=== PATIENT | male | born 1970 | race Two or more races ===

== ENCOUNTER 2020-09-11 17:46 | Emergency (ER) | payer OTHER, MEDICAID ==
[~2020-09-11] VITALS: Ht 165.1 cm; Wt 106.6 kg
[~2020-09-11 17:46] MED LIST: CYCLOBENZAPRINE10 MG ORAL; IBUPROFEN600 MG ORAL; NORCO 5-325 TA1 EACH ORAL
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
[2020-09-11] MEDS ORDERED: BENZTROPINE MESY1 MG ORAL (18:31)
[2020-09-11] MEDS ORDERED: PROCHLORPERAZINE5 MG ORAL (18:31)
[2020-09-11] MEDS ORDERED: propanolol PO (18:31)
[2020-09-11] MEDS ORDERED: VENLAFAXINE HCL25 MG ORAL (18:31)
[2020-09-11] MEDS ORDERED: HALOPERIDOL1 MG ORAL (18:31)
[2020-09-11] MEDS ORDERED: ATIVAN1 MG ORAL (18:31)
[2020-09-11] MEDS ORDERED: KLONOPIN1 MG ORAL (18:31)
--- NOTE | 2020-09-11 18:50 | NUR ---
called [facility] at [phone], left voicemail twice. no answer.
--- NOTE | 2020-09-11 18:50 | NUR ---
ED Nurse Note: IV line was established on left AC 20 ga, blood collected sent to lab.
--- NOTE | 2020-09-11 19:42 | NUR ---
called Carlos aguilar, patients brother states that there will be someone there to accept the patient
[2020-09-11 19:54] LABS: BASOPHILS % (AUTO) 1.9 % (0.0-2.0); HEMATOCRIT 54.6 % (42.0-52.0); LYMPHOCYTES % (AUTO) 41.6 % (20.0-45.0); MEAN CORPUSCULAR VOLUME 80 FL (80-99); MONOCYTES % (AUTO) 6.4 % (1.0-10.0); NEUTROPHILS % (AUTO) 48.1 % (45.0-75.0); PLATELET COUNT 256 K/UL (150-450); RED BLOOD COUNT 6.79 M/UL (4.70-6.10); RED CELL DISTRIBUTION WIDTH 14.3 % (11.6-14.8); WHITE BLOOD COUNT 8.5 K/UL (4.8-10.8)
[2020-09-11] MEDS ORDERED: LORazepam Inj 2mg/ml 1ml IV ONE (20:00)
--- NOTE | 2020-09-11 20:00 | NUR ---
ED Nurse Note: Recieved report from JACKELYN Mast to resume care, pt sitting in chair in hallway, awake, alert and oriented x 4, pt addressing concerns of being discharged, stating he still needs meds, pt zyprexias just given by previous nurse, pt assisted back to room, will continue to closely monitor asnd prepare for discharge.
[2020-09-11] MEDS ORDERED: ZYPREXA ZYDIS5 MG ORAL (20:12)
[2020-09-11 20:18] LABS: HEMOGLOBIN 18.1 G/DL (14.2-18.0)
[2020-09-11 20:24] LABS: ANION GAP 8 mmol/L (5-15); BLOOD UREA NITROGEN 16 mg/dL (7-18); CALCIUM 9.1 MG/DL (8.5-10.1); CARBON DIOXIDE 29 MMOL/L (21-32); CHLORIDE 103 MMOL/L (98-107); CREATININE 1.2 MG/DL (0.55-1.30); POTASSIUM 3.9 MMOL/L (3.5-5.1); SODIUM 140 MMOL/L (136-145)
[2020-09-11 20:28] LABS: ALANINE AMINOTRANSFERASE 26 U/L (12-78); ALBUMIN 3.7 G/DL (3.4-5.0); ALBUMIN/GLOBULIN RATIO 1.3 (1.0-2.7); ALKALINE PHOSPHATASE 102 U/L (46-116); ASPARTATE AMINO TRANSFERASE 15 U/L (15-37); BILIRUBIN,TOTAL 0.3 MG/DL (0.2-1.0)
[2020-09-11 20:45] VITALS: BP 138/79
--- NOTE | 2020-09-11 21:00 | NUR ---
ER DISCHARGE NOTE: Patient is cleared to be discharged per ERMD, pt is aox4, on room air, with stable vital signs. pt was given dc and prescription instructions, pt was able to verbalize understanding, pt id band and iv site removed without complications. pt is able to ambulate with steady gait. pt took all belongings.pt brother present to drive pt.
[2020-09-11 21:05] VITALS: BP 138/79
--- NOTE | 2020-09-11 22:40 | Emergency Room Report ---
History of Present Illness General Chief Complaint: Behavioral Complaint Source: Patient Present Illness HPI 49-year-old male brought in by EMS for behavioral complaint. Coming from an assisted living facility. History of schizophrenia. Patient became agitated and aggressive with staff there. Upon arrival patient states that they upset him. Denies SI or HI. Denies hearing voices. States that he does not believe his medications are working. No other aggravating relieving factors. Denies any other associated symptoms Allergies: Coded Allergies: No Known Allergies (Unverified , 05/21/15) COVID-19 Screening Contact w/high risk pt: No Experienced COVID-19 symptoms?: No COVID-19 Testing performed NAIL KEGGER: No Patient History Past Medical History: psych hx Past Surgical History: none Pertinent Family History: none Social History: Denies: smoking, alcohol use, drug use Immunizations: UTD Reviewed Nursing Documentation: PMH: Agreed; PSxH: Agreed Nursing Documentation-PMH Past Medical History: No History, Except For History Of Psychiatric Problem: Yes - schizophrenia Review of Systems All Other Systems: negative except mentioned in HPI Physical Exam Vital Signs Date Time Temp Pulse Resp B/P (MAP) Pulse Ox O2 Delivery O2 Flow Rate FiO2 09/11/20 17:57 97.3 09/11/20 18:05 88 20 Room Air 09/11/20 19:54 144/82 97 Sp02 EP Interpretation: reviewed, normal General Appearance: no apparent distress, alert, GCS 15, non-toxic Head: normocephalic, atraumatic Eyes: bilateral eye normal inspection, bilateral eye PERRL ENT: hearing grossly normal, normal pharynx, no angioedema, normal voice Neck: full range of motion, supple/symm/no masses Respiratory: chest non-tender, lungs clear, normal breath sounds, speaking full sentences Cardiovascular #1: regular rate, rhythm, no edema Cardiovascular #2: 2+ carotid (R), 2+ carotid (L), 2+ radial (R), 2+ radial (L) , 2+ dorsalis pedis (R), 2+ dorsalis pedis (L) Gastrointestinal: normal bowel sounds, non tender, soft, non-distended, no guarding, no rebound Rectal: deferred Genitourinary: normal inspection, no CVA tenderness Musculoskeletal: back normal, normal range of motion, gait/station normal, non-tender Neurologic: alert, motor strength/tone normal, oriented x3, sensory intact, responsive, speech normal Psychiatric: judgement/insight normal, memory normal, mood/affect normal, no suicidal/homicidal ideation Reflexes: 3+ bicep (R), 3+ bicep (L), 3+ tricep (R), 3+ tricep (L), 3+ knee (R), 3+ knee (L) Lymphatic: no adenopathy Medical Decision Making Diagnostic Impression: Primary Impression: Behavioral change ER Course Hospital Course 49-year-old male presents from assisted living with increased agitation. History of schizophrenia Differential diagnoses include: Psychosis, anxiety, ETOH Clinical course Patient placed on stretcher. On monitor worker. After initial history and physical I ordered labs, zyprexa, ativan Labs-electrolytes normal, aspirin/Tylenol levels normal, EtOH level normal On reassessment patient appears calm and cooperative. No danger to self or others. We contacted brother who offered to pick patient up and take him back to assisted living. We will change to Zyprexa. Safe for discharge close outpatient follow-up i. I feel this is a highly complex case requiring extensive working including EKG/Rhythm strip, Xray/CT/US, Blood/urine lab work, repeat exams while in ED, and administration of strong opiates/narcotics for pain control, admission to hospital or close patient follow up. Diagnosis - behavioral change Stable and discharged to assisted living. Followup with PMD/psychiatrist. Return to ED if symptoms recur or worsen Laboratory Tests Test 09/11/20 19:38 White Blood Count 8.5 K/UL (4.8-10.8) Red Blood Count 6.79 M/UL (4.70-6.10) H Hemoglobin 18.1 G/DL (14.2-18.0) *H Hematocrit 54.6 % (42.0-52.0) H Mean Corpuscular Volume 80 FL (80-99) Mean Corpuscular Hemoglobin 26.7 PG (27.0-31.0) L Mean Corpuscular Hemoglobin Concent 33.2 G/DL (32.0-36.0) Red Cell Distribution Width 14.3 % (11.6-14.8) Platelet Count 256 K/UL (150-450) Mean Platelet Volume 8.0 FL (6.5-10.1) Neutrophils (%) (Auto) 48.1 % (45.0-75.0) Lymphocytes (%) (Auto) 41.6 % (20.0-45.0) Monocytes (%) (Auto) 6.4 % (1.0-10.0) Eosinophils (%) (Auto) 2.0 % (0.0-3.0) Basophils (%) (Auto) 1.9 % (0.0-2.0) Sodium Level 140 MMOL/L (136-145) Potassium Level 3.9 MMOL/L (3.5-5.1) Chloride Level 103 MMOL/L (98-107) Carbon Dioxide Level 29 MMOL/L (21-32) Anion Gap 8 mmol/L (5-15) Blood Urea Nitrogen 16 mg/dL (7-18) Creatinine 1.2 MG/DL (0.55-1.30) Estimat Glomerular Filtration Rate > 60 mL/min (>60) Glucose Level 125 MG/DL (74-106) H Calcium Level 9.1 MG/DL (8.5-10.1) Total Bilirubin 0.3 MG/DL (0.2-1.0) Aspartate Amino Transf (AST/SGOT) 15 U/L (15-37) Alanine Aminotransferase (ALT/SGPT) 26 U/L (12-78) Alkaline Phosphatase 102 U/L (46-116) Total Protein 6.6 G/DL (6.4-8.2) Albumin 3.7 G/DL (3.4-5.0) Globulin 2.9 g/dL Albumin/Globulin Ratio 1.3 (1.0-2.7) Salicylates Level 6.4 ug/mL (2.8-20) Acetaminophen Level < 2 MCG/ML (10-30) L Serum Alcohol < 3 mg/dL Last Vital Signs Date Time Temp Pulse Resp B/P (MAP) Pulse Ox O2 Delivery O2 Flow Rate FiO2 09/11/20 19:54 88 20 144/82 97 09/11/20 18:05 97.3 Room Air Status: improved Disposition: ASSISTED LIVING Condition: Stable Scripts Olanzapine Zydis* (ZYPREXA ZYDIS*) 5 Mg Tab.rapdis 5 MG ORAL DAILY, #10 TAB 0 Refills Prov: Bernardo Fernández MD 09/11/20 Referrals: Marco Nielson. [facility] Patient Instructions: Schizophrenia Additional Instructions: try zyprexa instead of haldol. followup with your psychiatrist Bernardo Fernández MD Sep 11, 2020 22:40
== END 2020-09-11 21:05 | disposition home or self-care (01) ==
LOC: EDUNIT# 17:46 → EDBD 17:46 → EMR 18:55
DX: F68.8 Other specified disorders of adult personality and behavior (principal); F20.9 Schizophrenia, unspecified
CPT/HCPCS: 36415; 80053; 85025; 96374; 99284; G0480